=== PATIENT | male | born 1990 | race African-American/Black ===

== ENCOUNTER 2017-06-02 16:36 | Emergency (ER) | payer SELFPAY ==
[~2017-06-02] VITALS: Ht 167.6 cm; Wt 65.0 kg
[2017-06-02] MEDS ORDERED: ONDANSETRON HCL 4MG/2ML VIAL IV STA (17:05)
[2017-06-02] MEDS ORDERED: SODIUM CHLORIDE 0.9% 1,000 ML IV ONE (17:05)
[2017-06-02] MEDS ORDERED: MORPHINE SULFATE 4 MG/ML CPJ (NOT FOR IM USE) IV STA (17:05)
[2017-06-02] MEDS ORDERED: CEFAZOLIN 1000MG PREMIX 50 ML IV ONE (17:15)
[2017-06-02 17:26] VITALS: BP 130/65
[2017-06-02 17:33] LABS: BASOPHILS % 0.5 % (0.0-2.0); HEMATOCRIT. 38.8 % (42.0-52.0); HEMOGLOBIN. 12.8 g/dL (14.0-18.0); LYMPHOCYTES % 22.5 % (20.0-50.0); MEAN CORPUSCULAR HEMOGLOBIN 28.6 pg (28.0-32.0); MEAN CORPUSCULAR VOLUME 87.2 fL (80.0-94.0); MEAN PLATELET VOLUME 9.3 fl (7.4-10.4); MONOCYTES % 7.2 % (2.0-8.0); NEUTROPHILS % 67.8 % (40.0-76.0); PLATELET 229 x1000/uL (130-400); RED BLOOD CELL COUNT 4.46 mill/uL (4.7-6.1); RED CELL DISTRIBUTION WIDTH 12.8 % (11.6-14.6)
[2017-06-02 17:42] LABS: CARBON DIOXIDE 29 mEq/L (21-32); CHLORIDE 107 mEq/L (98-107)
[2017-06-02 17:51] LABS: INR 1.1; PARTIAL THROMBOPLASTIN TIME 25.8 sec (24.0-34.0); PROTHROMBIN TIME 11.4 sec
== END 2017-06-02 18:31 | disposition short-term general hospital (02) ==
LOC: ER 16:46
DX: S01.81XA Laceration without foreign body of other part of head, initial encounter (principal); F12.929 Cannabis use, unspecified with intoxication, unspecified; D64.9 Anemia, unspecified; W22.8XXA Striking against or struck by other objects, initial encounter; Y93.89 Activity, other specified; Y92.89 Other specified places as the place of occurrence of the external cause; Y99.8 Other external cause status
CPT/HCPCS: 36415; 70450; 70486; 72125; 80048; 85025; 85610; 85730; 96365; 96375; 99291; J0690; J2270; J2405; J7030; Z7610